=== PATIENT | female | born 1995 | race Caucasian/White ===

== ENCOUNTER 2022-01-31 17:11 | Inpatient (IN) | payer OTHER ==
[~2022-01-31] VITALS: Ht 154.9 cm; Wt 73.5 kg
[2022-01-31 18:51] LABS: HEMOGLOBIN 11.3 gm/dl (12.3-15.3); RED BLOOD COUNT 3.68 M/UL (4.00-5.10); WHITE BLOOD COUNT 8.4 K/UL (4.5-11.0)
[2022-01-31 19:25] LABS: BUN/CREATININE RATIO 11 (0-10)
[2022-02-02 05:17] LABS: HEMOGLOBIN 11.4 gm/dl (12.3-15.3)
[2022-02-03] MEDS ORDERED: IBUPROFEN600 MG PO (09:15)
[2022-02-03] MEDS ORDERED: DOCUSATE SODIU100 MG PO (09:15)
== END 2022-02-03 14:23 | disposition home or self-care (01) | DRG 806 ==
LOC: GENOP 17:11 → OB 17:32
PROVIDERS: Obstetrics & Gynecology; ADMIT Obstetrics & Gynecology
PROC: 10E0XZZ Delivery of Products of Conception, External Approach (ICD-10-PCS; principal; 2022-01-31)
PROC: 10907ZC Drainage of Amniotic Fluid, Therapeutic from Products of Conception, Via Natural or Artificial Opening (ICD-10-PCS; 2022-01-31)
PROC: 4A1HXCZ Monitoring of Products of Conception, Cardiac Rate, External Approach (ICD-10-PCS; 2022-01-31)
DX: O10.92 Unspecified pre-existing hypertension complicating childbirth (principal); O98.42 Viral hepatitis complicating childbirth; Z20.822 Contact with and (suspected) exposure to COVID-19; Z37.0 Single live birth; O99.334 Smoking (tobacco) complicating childbirth; F17.210 Nicotine dependence, cigarettes, uncomplicated; Z3A.37 37 weeks gestation of pregnancy; Z28.310 Unvaccinated for COVID-19; B19.20 Unspecified viral hepatitis C without hepatic coma; Z82.49 Family history of ischemic heart disease and other diseases of the circulatory system
CPT/HCPCS: 36415; 36600; 80053; 80307; 81001; 82570; 82800; 84156; 84550; 85014; 85018; 85025; 90715; J2590